=== PATIENT | male | born 1990 | race Two or more races ===

== ENCOUNTER 2023-12-12 15:46 | Outpatient (CLI) | payer OTHER ==
--- NOTE | 2023-12-12 16:51 | MRI Report ---
PROCEDURE: Lumbar Spine WO INDICATIONS: LOW BACK PAIN TECHNIQUE: Noncontrast sagittal T1 spin echo and T2 fast echo, sagittal STIR, axial T1 and T2 fast spin echo thr ough the lumbar spine. In cases with scoliosis, additional coronal T2 fast spin echo may be performe d. COMPARISON: None. FINDINGS: Image quality: Excellent. Alignment and Curvature: There is normal bony alignment. Bone Marrow: Marrow is of normal overall signal. No acute vertebral body compression fractures. Spinal Cord: Conus medullaris terminates at the L1-L2 level. Visualized cord demonstrates normal si gnal and size. Paraspinous Soft Tissues: No paravertebral masses. T12-L1: Normal in appearance. L1-L2: Normal in appearance. L2-L3: Normal in appearance. L3-L4: Normal in appearance. L4-L5: Normal in appearance. L5-S1: Large central disc extrusion measuring approximately 11 x 9 mm with mild superior extension resulting in mild to moderate central canal stenosis. Narrowing of the lateral recesses with abutment of the descending S1 nerve roots, right greater than left. No neuroforaminal stenosis. IMPRESSION: Large disc extrusion at L5-S1 resulting in mild to moderate central canal stenosis. There is narrowin g of the lateral recesses with abutment of the descending S1 nerve roots, right greater than left. No neuroforaminal stenosis. Reviewed by: Henry Fay MD on 12/12/2023 4:50 PM PST Approved by: Henry Fay MD on 12/12/2023 4:50 PM PST Station ID: [id number]
== END 2023-12-12 15:47 | disposition home or self-care (01) ==
LOC: DI 15:46
DX: M51.27 Other intervertebral disc displacement, lumbosacral region (principal); M48.07 Spinal stenosis, lumbosacral region